=== PATIENT | male | born 1970 | race Two or more races ===

== ENCOUNTER 2020-10-01 16:20 | Inpatient (IN) | payer SELFPAY ==
[~2020-10-01] VITALS: Ht 167.6 cm; Wt 71.7 kg
--- NOTE | 2020-10-01 17:42 | Emergency Room Report ---
History of Present Illness General Chief Complaint: Upper Respiratory Illness Present Illness HPI 50-year-old previously healthy with no medical history male presents to the [facility] department complaining of 3 out of 10 in severity pain in the posterior ribs bilaterally when taking a deep breath or when coughing. Patient reports very slight pain is noted in the sternal area. Patient denies fevers or chills. Does report productive cough yesterday. He denies smoking history or recent travel. No recent immobilization. He denies SOB. Denies recent travel. Denies contact with persons who have tested positive for or are under investigation/quarantine for COVID-19. Pt. was seen at outpatient clinic today and sent to ER for evaluation of low oxygen saturation. He was being evaluated for Viral URI. Allergies: Coded Allergies: No Known Allergies (Unverified , 10/01/20) COVID-19 Screening Contact w/high risk pt: No Experienced COVID-19 symptoms?: Yes COVID-19 Testing performed PAVILION CUTTER: No Patient History Past Medical History: see triage record Past Surgical History: none Pertinent Family History: none Reviewed Nursing Documentation: PMH: Agreed; PSxH: Agreed Review of Systems All Other Systems: negative except mentioned in HPI Physical Exam Vital Signs Date Time Temp Pulse Resp B/P (MAP) Pulse Ox O2 Delivery O2 Flow Rate FiO2 10/01/20 16:54 100.2 118 25 135/92 (106) 92 Room Air Sp02 EP Interpretation: reviewed, normal General Appearance: no apparent distress, alert, GCS 15, non-toxic Head: normocephalic, atraumatic Eyes: bilateral eye normal inspection, bilateral eye PERRL ENT: hearing grossly normal, normal voice Neck: full range of motion Respiratory: chest non-tender, lungs clear, normal breath sounds, no respiratory distress, no accessory muscle use, speaking full sentences, wheezing - bilateral expiratory wheezes Cardiovascular #1: no edema, normal capillary refill, tachycardia Musculoskeletal: back normal, normal range of motion, gait/station normal, non- tender Neurologic: alert, motor strength/tone normal, oriented x3, sensory intact, responsive, speech normal Psychiatric: judgement/insight normal Skin: no rash, normal color Lymphatic: no adenopathy Medical Decision Making PA Attestation Dr. Durand is my supervising Physician whom patient management has been discussed with. Diagnostic Impression: Primary Impression: Hypoxia Additional Impressions: Clinical diagnosis of COVID-19 Acute viral syndrome ER Course 50-year-old previously healthy with no medical history male presents to the emergency department complaining of 3 out of 10 in severity pain in the posterior ribs bilaterally when taking a deep breath or when coughing. Patient reports very slight pain is noted in the sternal area. Patient denies fevers or chills. Does report productive cough yesterday. He denies smoking history or recent travel. No recent immobilization. He denies SOB. Denies recent travel. Denies contact with persons who have tested positive for or are under investigation/quarantine for COVID-19. Pt. was seen at outpatient clinic today and sent to ER for evaluation of low oxygen saturation. He was being evaluated for Viral URI. Ddx considered but are not limited to URI, pneumonia, PE, strep pharyngitis, meningitis, COVID-19 Vital signs: Low O2 saturation of 92-93%, Pt. is tachycardic, Pt. is afebrile. H&PE are most consistent with URI- no meningeal signs, oropharynx is not involved, no evidence of bacterial infection at this time. -- Pt. is nontoxic in appearance and in no acute distress. Does not demonstrate respiratory distress or increased respiratory effort ORDERS: -CXR: Patchy infiltrates laterally c/w COVID-19 - CBC: WNL - CMP -Lactic Acid: WNL -BNP: WNL -Lipase: WNL -CRP: * elevated at 10 -D-Dimer: 1.02 * -Troponin: WNL -EK Sinus tachycardia - Blood Cultures: Pending at time of sign out -PT/PTT: WNL -Rapid COVID-19 : POSITIVE ED INTERVENTIONS: - Rocephin IV -Azithromycin IV - Dexamethasone: 10mg - Lovenox 40mg DISPOSITION: at this time pt. will be admitted for COVID-19 infection and hypoxia Pt. is signed out to attending physician Dr. Durand. EKG Diagnostic Results Troponin ordered: Yes When was troponin ordered?: Oct 01, 2020 EKG Time: 16:44 Rate: tachycardiac - 113 Rhythm: NSR ST Segments: no acute changes ASA given to the pt in ED: No PA Scribe Text This Interpretation was scribed by BINDU Arellano. Chest X-Ray Diagnostic Results Chest X-Ray Diagnostic Results : Chest X-Ray Ordered: Yes # of Views/Limited/Complete: 1 View Indication: Shortness of Breath EP Interpretation: Yes BINDU Xray: Interpretation reviewed, by supervising MD, and agrees with findings. Interpretation: no effusion, no pneumothorax, other - patchy infiltrates to the lateral aspect of the lungs bilaterally. Impression: Other - COVID-19 appearance Electronically Signed by: Sunita Arellano PA-C Last Vital Signs Date Time Temp Pulse Resp B/P (MAP) Pulse Ox O2 Delivery O2 Flow Rate FiO2 10/01/20 16:54 100.2 118 25 135/92 (106) 92 Room Air Status: unchanged Disposition: ADMITTED INPATIENT Condition: Serious Signed Out To: Dr. Durand Scripts No Active Prescriptions or Reported Meds Referrals: [facility] Sunita Arellano Oct 01, 2020 17:42
[2020-10-01] MEDS ORDERED: TYLENOL EXTRA500 MG ORAL (18:12)
[2020-10-01] MEDS ORDERED: ZITHROMAX250 MG ORAL (18:12)
[2020-10-01] MEDS ORDERED: ALBUTEROL SULF8.5 G1 INH (18:12)
[2020-10-01] MEDS ORDERED: PREDNISONE20 MG ORAL (18:12)
--- NOTE | 2020-10-01 18:50 | NUR ---
ED Nurse Note: Pt walked in from clinic c/o chest pain with productive cough since Wednesday. Pt also c/o SOB. Denies n/v/d. Pt is AOx4, calm and cooperative to care, VSS, satting on >94% on RA, afebrile on triage.
[2020-10-01 19:09] VITALS: BP 135/87
--- NOTE | 2020-10-01 19:11 | NUR ---
ED Nurse Note: Dr. Junior at bedside, talked to patient using video repair department supervisor # [phone]. Patient agreed to stay in the hospital.
--- NOTE | 2020-10-01 19:15 | NUR ---
ED Nurse Note: Report received from HERNANDO Morales. Patient is in no acute distress at this time.
[2020-10-01 19:36] LABS: BASOPHILS % (AUTO) 0.9 % (0.0-2.0); EOSINOPHILS % (AUTO) 0.7 % (0.0-3.0); HEMATOCRIT 45.6 % (42.0-52.0); HEMOGLOBIN 15.9 G/DL (14.2-18.0); LYMPHOCYTES % (AUTO) 13.5 % (20.0-45.0); MEAN CORPUSCULAR VOLUME 82 FL (80-99); MONOCYTES % (AUTO) 8.7 % (1.0-10.0); NEUTROPHILS % (AUTO) 76.2 % (45.0-75.0); PLATELET COUNT 178 K/UL (150-450); RED BLOOD COUNT 5.55 M/UL (4.70-6.10); RED CELL DISTRIBUTION WIDTH 12.5 % (11.6-14.8); WHITE BLOOD COUNT 5.1 K/UL (4.8-10.8)
[2020-10-01 19:49] LABS: ANION GAP 9 mmol/L (5-15); BLOOD UREA NITROGEN 15 mg/dL (7-18); CALCIUM 8.4 MG/DL (8.5-10.1); CARBON DIOXIDE 28 MMOL/L (21-32); CHLORIDE 100 MMOL/L (98-107); POTASSIUM 3.6 MMOL/L (3.5-5.1); SODIUM 137 MMOL/L (136-145)
[2020-10-01] MEDS ORDERED: Azithromycin 500 MG in NS 275 ML IV ONE (20:00)
[2020-10-01] MEDS ORDERED: cefTRIAXone 1 GM in NS 55 ML IVPB ONE (20:00)
[2020-10-01 20:04] LABS: ALANINE AMINOTRANSFERASE 91 U/L (12-78); ALBUMIN 3.4 G/DL (3.4-5.0); ALBUMIN/GLOBULIN RATIO 0.8 (1.0-2.7); ALKALINE PHOSPHATASE 79 U/L (46-116); ASPARTATE AMINO TRANSFERASE 72 U/L (15-37); BILIRUBIN,TOTAL 0.9 MG/DL (0.2-1.0); FERRITIN 1055 NG/ML (8-388); LACTATE DEHYDROGENASE 311 U/L (81-234)
[2020-10-01] MEDS ORDERED: dexAMETHasone 10mg/ml Inj IV ONE (20:15)
[2020-10-01] MEDS ORDERED: Enoxaparin 40mg Inj SUBQ ONE (20:15)
[2020-10-01 20:25] VITALS: BP 130/82
--- NOTE | 2020-10-01 20:25 | NUR ---
ED Nurse Note: Patient is resting in room at this time. NAD noted. Breathing is normal and unlabored on 2L oxygen via NC with stable oxygen saturation. He is able to speak in full sentences. Other vital signs stable as well. Patient provided with PO fluids. Will cont. to monitor.
[2020-10-01 22:49] LABS: APPEARANCE,URINE CLEAR; BILIRUBIN, URINE NEGATIVE (NEGATIVE); GLUCOSE, URINE (UA) NEGATIVE (NEGATIVE); KETONES,URINE NEGATIVE (NEGATIVE); LEUKOCYTE ESTERASE ,URINE NEGATIVE (NEGATIVE); NITRITE,URINE NEGATIVE (NEGATIVE); PH,URINE 7 (4.5-8.0); PROTEIN,URINE 1+ (NEGATIVE); UROBILINOGEN,URINE 4 MG/DL (0.0-1.0)
--- NOTE | 2020-10-01 22:50 | NUR ---
ED Nurse Note: Patient is stable for transfer to [facility] unit at this time. He is awake, oriented x 4. Breathing is normal and unlabored on 2L oxygen via NC. He is in no respiratory distress at time of ED departure. He is verbally responsive and ambulatory. Patien taken to unit via wheelchair by tech. Vital signs are stable. IV is intact. He took all belongings with him including farnsworth in wallet that patient wishes to keep on him. Report given to MS nurse.
[2020-10-01 22:54] LABS: COLOR,URINE YELLOW
--- NOTE | 2020-10-01 23:10 | NUR ---
NURSE NOTES: Patient came from ER via wheelchair. A&OX4. IV site patent and intact. Skin intact. All belonging were checked. Patient has farnsworth $407.00. Patient refused send hospital safe. Bed in lowest position. Call light within reach. Will continue to monitor.
[2020-10-01 23:39] VITALS: BP 123/78
[2020-10-02] MEDS ORDERED: Albuterol/Ipratropium 3ml neb HHN PRN (00:30)
[2020-10-02 04:00] VITALS: BP 122/76
[2020-10-02 06:47] LABS: HEMATOCRIT 40.7 % (42.0-52.0); HEMOGLOBIN 15.2 G/DL (14.2-18.0); MEAN CORPUSCULAR VOLUME 79 FL (80-99); PLATELET COUNT 169 K/UL (150-450); RED BLOOD COUNT 5.13 M/UL (4.70-6.10); RED CELL DISTRIBUTION WIDTH 13.6 % (11.6-14.8)
--- NOTE | 2020-10-02 07:26 | NUR ---
NURSE HAND-OFF: Important Events on Shift: Patient Status: Diet: regular Pending Orders: Pending Results/Labs: Pending MD notification: Latest Vital Signs: Temperature 97.9 , Pulse 64 , B/P 122 /76 , Respiratory Rate 18 , O2 SAT 98 , Room Air, O2 Flow Rate 2.0 . Vital Sign Comment: Latest Martniez Fall Score: 20 Fall Risk: Low Risk Safety Measures: Call light Within Reach, Bed Alarm Zone 1, Side Rails Side Rails x2, Bed position Low and Locked. Fall Precautions: Patient Fall Education Report given to Amanda VILLAGOMEZ.
[2020-10-02 07:40] LABS: BLOOD UREA NITROGEN 12 mg/dL (7-18); CALCIUM 8.6 MG/DL (8.5-10.1); CHLORIDE 106 MMOL/L (98-107); CREATININE 0.7 MG/DL (0.55-1.30); PHOSPHORUS 3.6 MG/DL (2.5-4.9); POTASSIUM 3.7 MMOL/L (3.5-5.1); SODIUM 140 MMOL/L (136-145)
[2020-10-02 08:00] VITALS: BP 105/70
[2020-10-02 08:02] LABS: CARBON DIOXIDE 26 MMOL/L (21-32)
--- NOTE | 2020-10-02 08:03 | NUR ---
NURSE NOTES: Patient awake and alert and oriented,respirations are unlabored.02on at 2L N/C.Patient sitting upn bed getting ready to eat breakfast.Call light within reach.
[2020-10-02] MEDS: Heparin 5000 units/ml inj SUBQ SCH ×2 (08:59→20:13)
--- NOTE | 2020-10-02 09:24 | Diagnostic Imaging Report ---
Indication: Chest pain Technique: XRAY Chest 1v Comparison: None Findings: Patchy bilateral infiltrates are noted with a peripheral predilection. There is no pleural effusion or pneumothorax. Heart size within normal limits for AP technique. Mediastinal contours are sharp. No acute osseous anomaly. IMPRESSION: Patchy bilateral infiltrates concerning for multifocal pneumonia, particularly viral pneumonia. Clinical correlation and follow-up recommended.
[2020-10-02 12:00] VITALS: BP 130/84
--- NOTE | 2020-10-02 13:45 | Consultation ---
DATE OF CONSULTATION: 10/02/2020 PULMONARY CONSULTATION HISTORY OF PRESENT ILLNESS: This is a 50-year-old male who came to the hospital with generalized body ache and posterior rib cage pain. He also reports worsening pain when taking deep breath or coughing. The patient denies any fever. He denies any recent travel history. There is no history of tobacco use or any medical illnesses. He denies any contact with people who have tested positive for COVID-19. The patient was seen and evaluated in the emergency room. He was found to have borderline low saturations initially; however, currently is noted to be on room air and saturations 99%. He has been afebrile since arrival. His x-ray chest was reviewed and shows that he has patchy bilateral infiltrates concerning for pneumonic process. The patient also underwent rapid COVID-19 gene testing which was positive for COVID-19 pneumonia. PAST MEDICAL HISTORY: None. PAST SURGICAL HISTORY: None. ALLERGIES: None. REVIEW OF SYSTEMS: Denies any headaches, hematemesis, melena, or hematochezia. PHYSICAL EXAMINATION: GENERAL: Reveals a 50-year-old male. VITAL SIGNS: Blood pressure 130/90, heart rate 84, respirations 18, O2 saturation currently 97% on room air. HEENT: Unremarkable. LUNGS: Clear breath sounds bilaterally. ABDOMEN: Soft. EXTREMITIES: There is no edema. NEUROLOGIC: Nonfocal. LABORATORY DATA: Lab testing shows leukopenia with white count 3.0, otherwise normal CBC and BMP. Ferritin 1055. AST, ALT mildly elevated. LDH 311. CRP 10. Coags show D-dimer 1.0. IMPRESSION: 1. COVID-19 pneumonia. 2. Initially hypoxic, now has normal oxygenation. 3. Elevated inflammatory markers. DISCUSSION: Agree with broad spectrum antibiotics and Decadron. We will hold off on Remdesivir, agree with the Lovenox. We will follow. Camilo Mixon M.D. DR: Dario JOB#: [id number] CC:
--- NOTE | 2020-10-02 14:23 | Infectious Diseases Prog Note ---
Assessment/Plan Assessment/Plan Full consult to follow: A) 1) covid-19 with pna 2) ? CAP 3) allergies - nkda P) 1) dexamethasone, ceftriaxone and azithromycin 2) saturations are good on RA - hold off on remdesivir for now 3) monitor clinically 4) thank you Subjective Allergies: Coded Allergies: No Known Allergies (Unverified , 10/01/20) Objective Last 24 Hour Vital Signs Date Time Temp Pulse Resp B/P (MAP) Pulse Ox O2 Delivery O2 Flow Rate FiO2 10/02/20 12:00 97.0 67 20 130/84 (99) 99 10/02/20 09:00 Room Air 10/02/20 08:00 96.4 72 18 105/70 (82) 99 10/02/20 04:00 97.9 64 18 122/76 (91) 98 10/02/20 01:34 Room Air 10/01/20 23:39 97.8 86 20 123/78 (93) 96 10/01/20 23:10 Room Air 10/01/20 22:50 98.1 87 22 121/79 96 Nasal Cannula 2.0 10/01/20 20:25 98.6 96 22 130/82 97 Nasal Cannula 2.0 10/01/20 19:32 107 24 97 Nasal Cannula 2.0 10/01/20 19:30 111 24 Room Air 10/01/20 19:09 103.1 111 24 135/87 91 Room Air 10/01/20 16:54 100.2 118 25 135/92 (106) 92 Room Air Height (Feet): 5 Height (Inches): 6.00 Weight (Pounds): 158 Microbiology Date/Time Source Procedure Growth Status 10/01/20 19:10 Nasopharynx SARS-CoV-2 RdRp Gene Assay - Final Complete Laboratory Tests Test 10/01/20 19:17 10/01/20 22:30 10/02/20 05:00 White Blood Count 5.1 K/UL (4.8-10.8) 3.0 K/UL (4.8-10.8) L Red Blood Count 5.55 M/UL (4.70-6.10) 5.13 M/UL (4.70-6.10) Hemoglobin 15.9 G/DL (14.2-18.0) 15.2 G/DL (14.2-18.0) Hematocrit 45.6 % (42.0-52.0) 40.7 % (42.0-52.0) L Mean Corpuscular Volume 82 FL (80-99) 79 FL (80-99) L Mean Corpuscular Hemoglobin 28.7 PG (27.0-31.0) 29.6 PG (27.0-31.0) Mean Corpuscular Hemoglobin Concent 35.0 G/DL (32.0-36.0) 37.3 G/DL (32.0-36.0) H Red Cell Distribution Width 12.5 % (11.6-14.8) 13.6 % (11.6-14.8) Platelet Count 178 K/UL (150-450) 169 K/UL (150-450) Mean Platelet Volume 7.0 FL (6.5-10.1) 6.0 FL (6.5-10.1) L Neutrophils (%) (Auto) 76.2 % (45.0-75.0) H % (45.0-75.0) Lymphocytes (%) (Auto) 13.5 % (20.0-45.0) L % (20.0-45.0) Monocytes (%) (Auto) 8.7 % (1.0-10.0) % (1.0-10.0) Eosinophils (%) (Auto) 0.7 % (0.0-3.0) % (0.0-3.0) Basophils (%) (Auto) 0.9 % (0.0-2.0) % (0.0-2.0) Prothrombin Time 11.1 SEC (9.30-11.50) Prothromb Time International Ratio 1.0 (0.9-1.1) Activated Partial Thromboplast Time 30 SEC (23-33) D-Dimer 1.02 mg/L FEU (0.00-0.49) H Sodium Level 137 MMOL/L (136-145) 140 MMOL/L (136-145) Potassium Level 3.6 MMOL/L (3.5-5.1) 3.7 MMOL/L (3.5-5.1) Chloride Level 100 MMOL/L (98-107) 106 MMOL/L (98-107) Carbon Dioxide Level 28 MMOL/L (21-32) 26 MMOL/L (21-32) Anion Gap 9 mmol/L (5-15) Blood Urea Nitrogen 15 mg/dL (7-18) 12 mg/dL (7-18) Creatinine 1.0 MG/DL (0.55-1.30) 0.7 MG/DL (0.55-1.30) Estimat Glomerular Filtration Rate > 60 mL/min (>60) > 60 mL/min (>60) Glucose Level 118 MG/DL (74-106) H 162 MG/DL (74-106) H Lactic Acid Level 1.20 mmol/L (0.4-2.0) Calcium Level 8.4 MG/DL (8.5-10.1) L 8.6 MG/DL (8.5-10.1) Ferritin 1055 NG/ML (8-388) H Total Bilirubin 0.9 MG/DL (0.2-1.0) Aspartate Amino Transf (AST/SGOT) 72 U/L (15-37) H Alanine Aminotransferase (ALT/SGPT) 91 U/L (12-78) H Alkaline Phosphatase 79 U/L (46-116) Lactate Dehydrogenase 311 U/L (81-234) H Troponin I 0.000 ng/mL (0.000-0.056) C-Reactive Protein, Quantitative 10.0 mg/dL (0.00-0.90) H Pro-B-Type Natriuretic Peptide 28 pg/mL (0-125) Total Protein 7.8 G/DL (6.4-8.2) Albumin 3.4 G/DL (3.4-5.0) Globulin 4.4 g/dL Albumin/Globulin Ratio 0.8 (1.0-2.7) L Lipase 198 U/L (73-393) Urine Color Yellow Urine Appearance Clear Urine pH 7 (4.5-8.0) Urine Specific [place] 1.005 (1.005-1.035) Urine Protein 1+ (NEGATIVE) H Urine Glucose (UA) Negative (NEGATIVE) Urine Ketones Negative (NEGATIVE) Urine Blood Negative (NEGATIVE) Urine Nitrite Negative (NEGATIVE) Urine Bilirubin Negative (NEGATIVE) Urine Urobilinogen 4 MG/DL (0.0-1.0) H Urine Leukocyte Esterase Negative (NEGATIVE) Urine RBC 0 /HPF (0 - 0) Urine WBC 0-2 /HPF (0 - 0) Urine Squamous Epithelial Cells None /LPF (NONE/OCC) Urine Amorphous Sediment Moderate /LPF (NONE) H Urine Bacteria Occasional /HPF (NONE) Differential Total Cells Counted 100 Neutrophils % (Manual) 77 % (45-75) H Lymphocytes % (Manual) 16 % (20-45) L Monocytes % (Manual) 7 % (1-10) Eosinophils % (Manual) 0 % (0-3) Basophils % (Manual) 0 % (0-2) Band Neutrophils 0 % (0-8) Platelet Estimate Adequate Platelet Morphology Normal Red Blood Cell Morphology Normal Phosphorus Level 3.6 MG/DL (2.5-4.9) Magnesium Level 2.2 MG/DL (1.8-2.4) Current Medications Medications (Trade) Dose Ordered Sig/Carlos Route PRN Reason Start Time Stop Time Status Last Admin Dose Admin Acetaminophen (Tylenol) 650 mg Q6H PRN ORAL Temp >100.5 10/02/20 00:30 11/01/20 00:29 Albuterol/ Ipratropium (Albuterol/ Ipratropium) 3 ml Q4H PRN HHN Shortness of Breath 10/02/20 00:30 10/07/20 00:29 Dexamethasone Sodium Phosphate (Decadron 4mg/ml vial) 6 mg DAILY IVP 10/02/20 09:00 10/11/20 08:59 10/02/20 08:57 Heparin Sodium (Porcine) (Heparin 5000 units/ml) 5,000 units EVERY 12 HOURS SUBQ 10/02/20 09:00 11/16/20 08:59 10/02/20 08:59 Bita Gutierrez MD Oct 02, 2020 14:23
--- NOTE | 2020-10-02 15:20 | NUR ---
CASE MANAGEMENT:INITIAL REVIEW 50 YR OLD MALE WALKED IN TO ED FROM HOME CC;UPPER RESPIRATORY ILLNESS SI;COVID POSITIVE. HYPOXIA. ACUTE VIRAL SYNDROME. 103.1 111 25 135/92 97% 2L NC FERRITIN 1055 AST 72 ALT 91 CRP 10.0 D-DIMER 1.02 UA+ PROTEIN, UROBILINOGEN, AMORPHOUS SEDIMENT COVID RAPID ~ POSITIVE CXR ~ Patchy bilateral infiltrates concerning for multifocal pneumonia, particularly viral pneumonia. Clinical correlation and follow-up recommended. IS;IVF NS BOLUS ZITHROMAX IV ROCEPHIN IV DECADRON IV LOVENOX SQ ADMITTED TO MED SURG MED SURG STATUS DCP;FROM HOME Addendum: 10/02/20 at 1534 by SAKINA ORR LVN CM INTERQUAL CRITERIA MET
[2020-10-02 16:00] VITALS: BP 130/84
--- NOTE | 2020-10-02 16:29 | History and Physical ---
History of Present Illness General Date patient seen: Oct 02, 2020 Time patient seen: 12:35 Reason for Hospitalization: Upper Respiratory Illness Present Illness HPI 50M with no significant PMHx presented to the hospital with body aches. Patient said that he was recently evaluated at an urgent care for body aches and pain in his chest with very deep inhalation. He denies any fever, travel history, or members of his immediate home that were positive for Covid. He said he check his O2 sat at home and it was found to be in the low 90s and he became concerned with his breathing and went to the ED. Currently he is afebrile and breathing comfortably on RA. CXR significant for b/l infiltrates. Found to be Covid+. No anosmia or dysguesia. . Allergies: Coded Allergies: No Known Allergies (Unverified , 10/01/20) COVID-19 Screening Contact w/high risk pt: No Experienced COVID-19 symptoms?: Yes Coronavirus symptoms experienc: Fatigue, Cough Medication History No Active Prescriptions or Reported Meds Patient History History Provided By: Patient Healthcare decision maker Resuscitation status Advanced Directive on File Review of Systems Constitutional: Denies: no symptoms, see HPI, chills, sweats, fever, malaise, weakness, other Eye: Denies: no symptoms, see HPI, eye pain, blurred vision, tearing, double vision, nose pain, nose congestion, acuity changes, discharge, other ENT: Denies: no symptoms, see HPI, ear pain, ear discharge, nose pain, nose congestion, throat pain, throat swelling, mouth pain, hearing loss, nasal discharge, other Respiratory: Reports: see HPI Cardiovascular: Denies: no symptoms, see HPI, chest pain, edema, palpitations, syncope, PND, other Gastrointestinal: Denies: no symptoms, see HPI, abdominal pain, constipation, diarrhea, nausea, vomiting, melena, hematemesis, other Genitourinary: Denies: no symptoms, see HPI, discharge, dysuria, frequency, hematuria, pain, retention, incontinence, urgency, vag bleed/dc, other Musculoskeletal: Denies: no symptoms, see HPI, back pain, gout, joint pain, joint swelling, muscle pain, muscle stiffness, other Skin: Denies: no symptoms, see HPI, rash, change in color, change in hair/nails, dryness, lesions, other Psychiatric: Denies: no symptoms, see HPI, prior hx, anxiety, depressed feelings, emotional problems, SI, HI, hallucinations, other Neurological: Denies: no symptoms, see HPI, headache, numbness, paresthesia, seizure, tingling, tremors, focal weakness, syncope, dizziness, other Endocrine: Denies: no symptoms, see HPI, excessive sweating, flushing, intolerance to temperature, increased thirst, increased urine, unexplained weight loss, other Hematologic/Lymphatic: Denies: no symptoms, see HPI, anemia, blood clots, easy bleeding, easy bruising, swollen glands, diathesis, other Physical Exam General Appearance: alert HEENT: normocephalic, atraumatic Neck: supple Respiratory/Chest: lungs clear, decreased breath sounds Cardiovascular/Chest: normal rate, regular rhythm Abdomen: non tender, soft Extremities: normal range of motion, non-tender Skin Exam: warm/dry 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 normal, oriented x 3 Last 24 Hour Vital Signs Date Time Temp Pulse Resp B/P (MAP) Pulse Ox O2 Delivery O2 Flow Rate FiO2 10/02/20 12:00 97.0 67 20 130/84 (99) 99 10/02/20 09:00 Room Air 10/02/20 08:00 96.4 72 18 105/70 (82) 99 10/02/20 04:00 97.9 64 18 122/76 (91) 98 10/02/20 01:34 Room Air 10/01/20 23:39 97.8 86 20 123/78 (93) 96 10/01/20 23:10 Room Air 10/01/20 22:50 98.1 87 22 121/79 96 Nasal Cannula 2.0 10/01/20 20:25 98.6 96 22 130/82 97 Nasal Cannula 2.0 10/01/20 19:32 107 24 97 Nasal Cannula 2.0 10/01/20 19:30 111 24 Room Air 10/01/20 19:09 103.1 111 24 135/87 91 Room Air 10/01/20 16:54 100.2 118 25 135/92 (106) 92 Room Air Intake and Output 10/01/20 10/02/20 19:00 07:00 # Voids 2 Laboratory Tests Test 10/01/20 19:17 10/01/20 22:30 10/02/20 05:00 White Blood Count 5.1 K/UL (4.8-10.8) 3.0 K/UL (4.8-10.8) L Red Blood Count 5.55 M/UL (4.70-6.10) 5.13 M/UL (4.70-6.10) Hemoglobin 15.9 G/DL (14.2-18.0) 15.2 G/DL (14.2-18.0) Hematocrit 45.6 % (42.0-52.0) 40.7 % (42.0-52.0) L Mean Corpuscular Volume 82 FL (80-99) 79 FL (80-99) L Mean Corpuscular Hemoglobin 28.7 PG (27.0-31.0) 29.6 PG (27.0-31.0) Mean Corpuscular Hemoglobin Concent 35.0 G/DL (32.0-36.0) 37.3 G/DL (32.0-36.0) H Red Cell Distribution Width 12.5 % (11.6-14.8) 13.6 % (11.6-14.8) Platelet Count 178 K/UL (150-450) 169 K/UL (150-450) Mean Platelet Volume 7.0 FL (6.5-10.1) 6.0 FL (6.5-10.1) L Neutrophils (%) (Auto) 76.2 % (45.0-75.0) H % (45.0-75.0) Lymphocytes (%) (Auto) 13.5 % (20.0-45.0) L % (20.0-45.0) Monocytes (%) (Auto) 8.7 % (1.0-10.0) % (1.0-10.0) Eosinophils (%) (Auto) 0.7 % (0.0-3.0) % (0.0-3.0) Basophils (%) (Auto) 0.9 % (0.0-2.0) % (0.0-2.0) Prothrombin Time 11.1 SEC (9.30-11.50) Prothromb Time International Ratio 1.0 (0.9-1.1) Activated Partial Thromboplast Time 30 SEC (23-33) D-Dimer 1.02 mg/L FEU (0.00-0.49) H Sodium Level 137 MMOL/L (136-145) 140 MMOL/L (136-145) Potassium Level 3.6 MMOL/L (3.5-5.1) 3.7 MMOL/L (3.5-5.1) Chloride Level 100 MMOL/L (98-107) 106 MMOL/L (98-107) Carbon Dioxide Level 28 MMOL/L (21-32) 26 MMOL/L (21-32) Anion Gap 9 mmol/L (5-15) Blood Urea Nitrogen 15 mg/dL (7-18) 12 mg/dL (7-18) Creatinine 1.0 MG/DL (0.55-1.30) 0.7 MG/DL (0.55-1.30) Estimat Glomerular Filtration Rate > 60 mL/min (>60) > 60 mL/min (>60) Glucose Level 118 MG/DL (74-106) H 162 MG/DL (74-106) H Lactic Acid Level 1.20 mmol/L (0.4-2.0) Calcium Level 8.4 MG/DL (8.5-10.1) L 8.6 MG/DL (8.5-10.1) Ferritin 1055 NG/ML (8-388) H Total Bilirubin 0.9 MG/DL (0.2-1.0) Aspartate Amino Transf (AST/SGOT) 72 U/L (15-37) H Alanine Aminotransferase (ALT/SGPT) 91 U/L (12-78) H Alkaline Phosphatase 79 U/L (46-116) Lactate Dehydrogenase 311 U/L (81-234) H Troponin I 0.000 ng/mL (0.000-0.056) C-Reactive Protein, Quantitative 10.0 mg/dL (0.00-0.90) H Pro-B-Type Natriuretic Peptide 28 pg/mL (0-125) Total Protein 7.8 G/DL (6.4-8.2) Albumin 3.4 G/DL (3.4-5.0) Globulin 4.4 g/dL Albumin/Globulin Ratio 0.8 (1.0-2.7) L Lipase 198 U/L (73-393) Urine Color Yellow Urine Appearance Clear Urine pH 7 (4.5-8.0) Urine Specific [place] 1.005 (1.005-1.035) Urine Protein 1+ (NEGATIVE) H Urine Glucose (UA) Negative (NEGATIVE) Urine Ketones Negative (NEGATIVE) Urine Blood Negative (NEGATIVE) Urine Nitrite Negative (NEGATIVE) Urine Bilirubin Negative (NEGATIVE) Urine Urobilinogen 4 MG/DL (0.0-1.0) H Urine Leukocyte Esterase Negative (NEGATIVE) Urine RBC 0 /HPF (0 - 0) Urine WBC 0-2 /HPF (0 - 0) Urine Squamous Epithelial Cells None /LPF (NONE/OCC) Urine Amorphous Sediment Moderate /LPF (NONE) H Urine Bacteria Occasional /HPF (NONE) Differential Total Cells Counted 100 Neutrophils % (Manual) 77 % (45-75) H Lymphocytes % (Manual) 16 % (20-45) L Monocytes % (Manual) 7 % (1-10) Eosinophils % (Manual) 0 % (0-3) Basophils % (Manual) 0 % (0-2) Band Neutrophils 0 % (0-8) Platelet Estimate Adequate Platelet Morphology Normal Red Blood Cell Morphology Normal Phosphorus Level 3.6 MG/DL (2.5-4.9) Magnesium Level 2.2 MG/DL (1.8-2.4) Microbiology Date/Time Source Procedure Growth Status 10/01/20 19:10 Nasopharynx SARS-CoV-2 RdRp Gene Assay - Final Complete Height (Feet): 5 Height (Inches): 6.00 Weight (Pounds): 158 Medications Current Medications Medications (Trade) Dose Ordered Sig/Carlos Route PRN Reason Start Time Stop Time Status Last Admin Dose Admin Acetaminophen (Tylenol) 650 mg Q6H PRN ORAL Temp >100.5 10/02/20 00:30 11/01/20 00:29 Albuterol/ Ipratropium (Albuterol/ Ipratropium) 3 ml Q4H PRN HHN Shortness of Breath 10/02/20 00:30 10/07/20 00:29 Azithromycin (Zithromax) 500 mg DAILY ORAL 10/03/20 09:00 10/10/20 08:59 Ceftriaxone Sodium 1 gm/ Dextrose 50 ml @ 100 mls/hr Q24H IVPB 10/02/20 18:00 10/09/20 17:59 Dexamethasone Sodium Phosphate (Decadron 4mg/ml vial) 6 mg DAILY IVP 10/02/20 09:00 10/11/20 08:59 10/02/20 08:57 Heparin Sodium (Porcine) (Heparin 5000 units/ml) 5,000 units EVERY 12 HOURS SUBQ 10/02/20 09:00 11/16/20 08:59 10/02/20 08:59 Assessment/Plan Status: stable Assessment/Plan: #Acute hypoxemic Respiratory Failure #Covid 19 Positive #Concern for CAP Patient admitted with myalgias and pain in his chest with deep breahts. Patient lives with family, instructed patient to discuss self quaranting and testing with family - CXR with b/l patchy infiltrates - Currently stable on RA - Tylenol prn for fever - Contact and isolation precautions - LDH, CRP, and Ferritin elevated - Abx - Azitrhomycin and Ceftriaxone (10/02 - - Decadron (10/02 - ) - Albuterol prn - Pulmonology consult, appreciate recs - ID consult, appreciate recs Reg Diet Heparin sq Time spent is 75 minutes with approximately 31 minutes with counseling and care coordination. D/w consultants. Time of note does not reflect time of encounter Saritha Carlson M.D. Oct 02, 2020 16:29
[2020-10-02] MEDS: cefTRIAXone 1 GM in D5W 50 ML IVPB SCH (18:20)
--- NOTE | 2020-10-02 18:20 | NUR ---
NURSE NOTES: Patient using cellphone able to hold conversation,no shortness of breath noted at this time.Call light within reach.
--- NOTE | 2020-10-02 19:30 | NUR ---
NURSE HAND-OFF: Catherine VILLAGOMEZ Important Events on Shift:[patient started on antibiotics as ordered/] Patient Status: [stable] Diet: [Regular] Pending Orders: [AM labs 10/03/20 Pending Results/Labs:[] Pending MD notification:[] Latest Vital Signs: Temperature 96.6 , Pulse 85 , B/P 130 /84 , Respiratory Rate 18 , O2 SAT 99 , Room Air, O2 Flow Rate 2.0 . Vital Sign Comment: [] Latest Martinez Fall Score: 20 Fall Risk: Low Risk Safety Measures: Call light Within Reach, Bed Alarm Zone 1, Side Rails Side Rails x2, Bed position Low and Locked. Fall Precautions: Patient Fall Education Report given to [].
[2020-10-02 20:00] VITALS: BP 127/81
--- NOTE | 2020-10-02 20:00 | NUR ---
NURSE NOTES: Patient received in bed, awake, alert. Denies pain or discomfort at this time. Will continue to plan of care.
[2020-10-03] VITALS: BP 116/73
[2020-10-03 04:00] VITALS: BP 117/75
[2020-10-03 05:42] LABS: BASOPHILS % (AUTO) 0.7 % (0.0-2.0); EOSINOPHILS % (AUTO) 0.3 % (0.0-3.0); HEMOGLOBIN 14.6 G/DL (14.2-18.0); LYMPHOCYTES % (AUTO) 8.9 % (20.0-45.0); MEAN CORPUSCULAR VOLUME 80 FL (80-99); MONOCYTES % (AUTO) 8.2 % (1.0-10.0); NEUTROPHILS % (AUTO) 81.9 % (45.0-75.0); PLATELET COUNT 193 K/UL (150-450); RED BLOOD COUNT 4.77 M/UL (4.70-6.10); RED CELL DISTRIBUTION WIDTH 12.8 % (11.6-14.8); WHITE BLOOD COUNT 6.8 K/UL (4.8-10.8)
[2020-10-03 07:05] LABS: ALANINE AMINOTRANSFERASE 71 U/L (12-78); ALBUMIN 2.8 G/DL (3.4-5.0); ALBUMIN/GLOBULIN RATIO 0.7 (1.0-2.7); ALKALINE PHOSPHATASE 68 U/L (46-116); ANION GAP 8 mmol/L (5-15); ASPARTATE AMINO TRANSFERASE 30 U/L (15-37); BILIRUBIN,TOTAL 0.5 MG/DL (0.2-1.0); BLOOD UREA NITROGEN 20 mg/dL (7-18); CALCIUM 8.5 MG/DL (8.5-10.1); CARBON DIOXIDE 24 MMOL/L (21-32); CHLORIDE 109 MMOL/L (98-107); CREATININE 0.7 MG/DL (0.55-1.30); POTASSIUM 3.9 MMOL/L (3.5-5.1); SODIUM 141 MMOL/L (136-145)
--- NOTE | 2020-10-03 07:38 | NUR ---
NURSE NOTES: Report received from Catherine VILLAGOMEZ, rounds made. Patient resting in semi-fowlers position, in bed. AOx4, calm. Wolof/Persian speaking. No SOB on O2 2LNC , respirations even/unlabored. LAC saline lock, flushed, patent, intact. Call light in reach, bed in lowest position, will continue to monitor.
--- NOTE | 2020-10-03 07:46 | NUR ---
NURSE HAND-OFF: Important Events on Shift:[uneventful, stable] Patient Status: [stable] Diet: [Regular] Pending Orders: [] Pending Results/Labs:[] Pending MD notification:[] Latest Vital Signs: Temperature 97.3 , Pulse 61 , B/P 117 /75 , Respiratory Rate 18 , O2 SAT 98 , Nasal Cannula, O2 Flow Rate 2.0 . Vital Sign Comment: [] Latest Martinez Fall Score: 20 Fall Risk: Low Risk Safety Measures: Call light Within Reach, Bed Alarm Zone 1, Side Rails Side Rails x2, Bed position Low and Locked. Fall Precautions: Patient Fall Education Report given to [Nadya VILLAGOMEZ].
[2020-10-03 08:00] VITALS: BP 128/71
[2020-10-03] MEDS: Heparin 5000 units/ml inj SUBQ SCH ×2 (09:37→20:44)
[2020-10-03] MEDS: Azithromycin 250mg tab ORAL SCH (09:37)
[2020-10-03 12:00] VITALS: BP 131/71
--- NOTE | 2020-10-03 12:58 | NUR ---
CASE MANAGEMENT:REVIEW SI;COVID PNEUMONIA 97.7 58 20 128/71 97% 2L NC BUN 20 BG 142 ALB 2.8 IS;ZITHROMAX PO QD ROCEPHIN IV Q24 DECADRON IV QD HEPARIN SQ Q12 MED SURG STATUS DCP;PATIENT IS FROM HOME
--- NOTE | 2020-10-03 14:11 | Pulmonology Progress Note ---
Subjective ROS Limited/Unobtainable: No Constitutional: Denies: fever, anorexia, drenching sweats HEENT: Repors: no symptoms Respiratory: Reports: dry cough; Denies: shortness of breath, wheezing Cardiovascular: Denies: chest pain, palpitations Gastrointestinal/Abdominal: Denies: nausea, vomiting, diarrhea Allergies: Coded Allergies: No Known Allergies (Unverified , 10/01/20) Subjective pt complains of intermittent cough Objective Last 24 Hour Vital Signs Date Time Temp Pulse Resp B/P (MAP) Pulse Ox O2 Delivery O2 Flow Rate FiO2 10/03/20 12:00 98.1 73 20 131/71 (91) 99 10/03/20 08:00 97.1 60 20 128/71 (90) 99 10/03/20 04:00 97.3 61 18 117/75 (89) 98 10/03/20 00:00 97.2 58 20 116/73 (87) 98 10/02/20 21:00 Nasal Cannula 2.0 10/02/20 20:00 97.7 64 20 127/81 (96) 97 10/02/20 16:00 96.6 85 18 130/84 (99) 99 Intake and Output0 10/02/20 10/03/20 19:00 07:00 Intake Total 640 ml 300 ml Output Total 200 ml 550 ml Balance 440 ml -250 ml Intake Oral 640 ml 300 ml Output Urine Total 200 ml 550 ml # Voids 2 Objective 10/03/2020 saturating 99% on 2 lpm NC; reports feeling better General Appearance: WD/WN, no acute distress HEENT: normocephalic, atraumatic Respiratory: chest wall non-tender, lungs clear Cardiovascular: normal rate, regular rhythm, no gallop/murmur Abdomen: normal bowel sounds, soft, non tender Extremities: no edema Microbiology Date/Time Source Procedure Growth Status 10/01/20 19:23 Blood Blood Culture - Preliminary NO GROWTH AFTER 24 HOURS Resulted 10/01/20 19:17 Blood Blood Culture - Preliminary NO GROWTH AFTER 24 HOURS Resulted 10/01/20 19:10 Nasopharynx SARS-CoV-2 RdRp Gene Assay - Final Complete Laboratory Tests 10/03/20 04:00: White Blood Count 6.8#, Red Blood Count 4.77, Hemoglobin 14.6, Hematocrit 38.0L, Mean Corpuscular Volume 80, Mean Corpuscular Hemoglobin 30.5, Mean Corpuscular Hemoglobin Concent 38.4H, Red Cell Distribution Width 12.8, Platelet Count 193, Mean Platelet Volume 6.8, Neutrophils (%) (Auto) 81.9H, Lymphocytes (%) (Auto) 8.9L, Monocytes (%) (Auto) 8.2, Eosinophils (%) (Auto) 0.3, Basophils (%) (Auto) 0.7, Sodium Level 141, Potassium Level 3.9, Chloride Level 109H, Carbon Dioxide Level 24, Anion Gap 8, Blood Urea Nitrogen 20H, Creatinine 0.7, Estimat Glomerular Filtration Rate > 60, Glucose Level 142H, Calcium Level 8.5, Total Bilirubin 0.5, Aspartate Amino Transf (AST/SGOT) 30, Alanine Aminotransferase (ALT/SGPT) 71, Alkaline Phosphatase 68, Total Protein 6.8, Albumin 2.8L, Globulin 4.0, Albumin/Globulin Ratio 0.7L Current Medications Medications (Trade) Dose Ordered Sig/Carlos Route PRN Reason Start Time Stop Time Status Last Admin Dose Admin Acetaminophen (Tylenol) 650 mg Q6H PRN ORAL Temp >100.5 10/02/20 00:30 11/01/20 00:29 Albuterol/ Ipratropium (Combivent Respimat) 1 puff Q4H PRN INH Shortness of Breath 10/03/20 14:00 11/02/20 13:59 Azithromycin (Zithromax) 500 mg DAILY ORAL 10/03/20 09:00 10/10/20 08:59 10/03/20 09:37 Ceftriaxone Sodium 1 gm/ Dextrose 50 ml @ 100 mls/hr Q24H IVPB 10/02/20 18:00 10/09/20 17:59 10/02/20 18:20 Dexamethasone Sodium Phosphate (Decadron 4mg/ml vial) 6 mg DAILY IVP 10/02/20 09:00 10/11/20 08:59 10/03/20 09:38 Heparin Sodium (Porcine) (Heparin 5000 units/ml) 5,000 units EVERY 12 HOURS SUBQ 10/02/20 09:00 11/16/20 08:59 10/03/20 09:37 Assessment/Plan Assessment/Plan Assessment: 1. COVID-19 pneumonia. - CXR shows patchy b/l infiltrates concerning for multifocal pneumonia - on broad spectrum Abx and decadron - hold off on remdesivir 2. Initially hypoxic, now has normal oxygenation on 2 lpm NC 3. Elevated inflammatory markers. 4. DVT ppx - lovenox 5. Elevated BUN - BUN 20 - monitor We will follow carefully The care of this patient was discussed with my supervising physician Time spent for this encounter was approximately 31 minutes The patient was seen and examined at bedside and all new and available data was reviewed in the patients chart. I agree with the above findings, impression, and plan. (Patient was seen earlier today. Signature timestamp does not reflect patient encounter time) Fabián Cortez MD Oct 03, 2020 14:11 Camilo Mixon MD Oct 03, 2020 18:00
--- NOTE | 2020-10-03 14:39 | General Progress Note ---
Subjective Date patient seen: Oct 03, 2020 Constitutional: Denies: no symptoms, chills, diaphoresis, fever, malaise, weakness, other HEENT: Denies: no symptoms, eye pain, blurred vision, tearing, double vision, ear pain, ear discharge, nose pain, nose congestion, throat pain, throat swelling, mouth pain, mouth swelling, other Cardiovascular: Denies: no symptoms, chest pain, edema, irregular heart rate, lightheadedness, palpitations, syncope, other Respiratory: Denies: no symptoms, cough, orthopnea, shortness of breath, SOB with excertion, SOB at rest, sputum, stridor, wheezing, other Gastrointestinal/Abdominal: Denies: no symptoms, abdomen distended, abdominal pain, black stools, tarry stools, blood in stool, constipated, diarrhea, difficulty swallowing, nausea, poor appetite, poor fluid intake, rectal bleeding, vomiting, other Genitourinary: Denies: no symptoms, burning, discharge, frequency, flank pain, hematuria, incontinence, pain, urgency, other Neurologic/Psychiatric: Denies: no symptoms, anxiety, depressed, emotional problems, headache, numbness, paresthesia, pre-existing deficit, seizure, tingling, tremors, weakness, other Endocrine: Denies: no symptoms, excessive sweating, flushing, intolerance to cold, intolerance to heat, increased hunger, increased thirst, increased urine, unexplained weight gain, unexplained weight loss, other Hematologic/Lymphatic: Denies: no symptoms, anemia, easy bleeding, easy bruising, other Allergies: Coded Allergies: No Known Allergies (Unverified , 10/01/20) Subjective No acute events overnight Oxygen sat 99% on 2L NC No symptoms of shortness of breath Subjectively doing well Objective Last 24 Hour Vital Signs Date Time Temp Pulse Resp B/P (MAP) Pulse Ox O2 Delivery O2 Flow Rate FiO2 10/03/20 12:00 98.1 73 20 131/71 (91) 99 10/03/20 08:00 97.1 60 20 128/71 (90) 99 10/03/20 04:00 97.3 61 18 117/75 (89) 98 10/03/20 00:00 97.2 58 20 116/73 (87) 98 10/02/20 21:00 Nasal Cannula 2.0 10/02/20 20:00 97.7 64 20 127/81 (96) 97 10/02/20 16:00 96.6 85 18 130/84 (99) 99 Intake and Output 10/02/20 10/03/20 18:59 06:59 Intake Total 640 ml 300 ml Output Total 200 ml 550 ml Balance 440 ml -250 ml Intake Oral 640 ml 300 ml Output Urine Total 200 ml 550 ml # Voids 2 Laboratory Tests 10/03/20 04:00: White Blood Count 6.8#, Red Blood Count 4.77, Hemoglobin 14.6, Hematocrit 38.0L, Mean Corpuscular Volume 80, Mean Corpuscular Hemoglobin 30.5, Mean Corpuscular Hemoglobin Concent 38.4H, Red Cell Distribution Width 12.8, Platelet Count 193, Mean Platelet Volume 6.8, Neutrophils (%) (Auto) 81.9H, Lymphocytes (%) (Auto) 8.9L, Monocytes (%) (Auto) 8.2, Eosinophils (%) (Auto) 0.3, Basophils (%) (Auto) 0.7, Sodium Level 141, Potassium Level 3.9, Chloride Level 109H, Carbon Dioxide Level 24, Anion Gap 8, Blood Urea Nitrogen 20H, Creatinine 0.7, Estimat Glomerular Filtration Rate > 60, Glucose Level 142H, Calcium Level 8.5, Total Bilirubin 0.5, Aspartate Amino Transf (AST/SGOT) 30, Alanine Aminotransferase (ALT/SGPT) 71, Alkaline Phosphatase 68, Total Protein 6.8, Albumin 2.8L, Globulin 4.0, Albumin/Globulin Ratio 0.7L Height (Feet): 5 Height (Inches): 6.00 Weight (Pounds): 158 General Appearance: no apparent distress, alert EENT: PERRL/EOMI Neck: supple Cardiovascular: normal rate, regular rhythm Respiratory/Chest: lungs clear, normal breath sounds Abdomen: non tender, soft Extremities: normal range of motion 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 Patient lives with family, instructed patient to discuss self quarantine and testing with family - CXR with b/l patchy infiltrates - Currently stable on RA - Tylenol prn for fever - Contact and isolation precautions - LDH, CRP, and Ferritin elevated - Abx - Azitrhomycin and Ceftriaxone (10/02 - - Decadron (10/02 - ) - Albuterol prn - Pulmonology consult, appreciate recs - ID consult, appreciate recs Reg Diet Heparin sq Time spent is 35 minutes with approximately 17 minutes with counseling and care coordination. D/w consultants. Time of note does not reflect time of encounter Saritha Carlson M.D. Oct 03, 2020 14:39
--- NOTE | 2020-10-03 15:00 | NUR ---
NURSE NOTES: O2 weaning, reduced to 1.5 L NC, sats 98%, no cough, SOB at this time. Will continue to monitor.
[2020-10-03 16:00] VITALS: BP 121/71
--- NOTE | 2020-10-03 16:29 | Diagnostic Imaging Report ---
Indication: Reason For Exam: Shortness of breath Technique: Single AP view of the chest. Comparison: Chest radiograph Dated 10/01/2020 Findings: The cardiomediastinal silhouette is unchanged in appearance. Redemonstration of diffuse interstitial opacities and patchy predominantly peripheral bilateral airspace opacities. Apparent worsening aeration of the lungs. No pneumothorax. No increase in pleural effusion. IMPRESSION: Apparent worsening in aeration of the lungs is likely secondary to decreased inspiratory effort. Otherwise, no significant change compared to most recent examination.
[2020-10-03] MEDS: cefTRIAXone 1 GM in D5W 50 ML IVPB SCH (18:11)
--- NOTE | 2020-10-03 19:20 | NUR ---
NURSE NOTES: Received report from HERNANDO [place]. Pt is laying down in bed watching TV. VSS. Bed locked in lowest position, side rails up x2, call light within reach. O2 via NC at 1.5L, no difficulty breathing, O2 sat 97%. Will continue to monitor.
--- NOTE | 2020-10-03 19:32 | NUR ---
NURSE HAND-OFF: Important Events on Shift:Wean O2 down, keep sats >90%, decreased to 1.5L on NC sats 98% Patient Status: stable Diet: Regular Pending Orders: none Pending Results/Labs:none Pending MD notification:none Latest Vital Signs: Temperature 97.1 , Pulse 72 , B/P 121 /71 , Respiratory Rate 20 , O2 SAT 98 , Nasal Cannula, O2 Flow Rate 2.0 . Vital Sign Comment: none Latest Martinez Fall Score: 20 Fall Risk: Low Risk Safety Measures: Call light Within Reach, Bed Alarm Zone 1, Side Rails Side Rails x2, Bed position Low and Locked. Fall Precautions: Patient Fall Education Report given to Catherine VILLAGOMEZ.
[2020-10-03 20:00] VITALS: BP 124/81
--- NOTE | 2020-10-03 23:42 | Infectious Diseases Prog Note ---
Assessment/Plan Assessment/Plan A) 1) covid-19 with pna 2) ? CAP 3) allergies - nkda P) 1) dexamethasone, ceftriaxone and azithromycin 2) saturations are good - hold off on remdesivir for now 3) monitor clinically Subjective Constitutional: Denies: fever HEENT: Reports: congestion - less Respiratory: Reports: shortness of breath - less Gastrointestinal/Abdominal: Denies: nausea, vomiting, diarrhea Allergies: Coded Allergies: No Known Allergies (Unverified , 10/01/20) Objective Last 24 Hour Vital Signs Date Time Temp Pulse Resp B/P (MAP) Pulse Ox O2 Delivery O2 Flow Rate FiO2 10/03/20 21:00 Nasal Cannula 1.5 10/03/20 20:00 96.2 64 18 124/81 (95) 97 10/03/20 16:00 97.1 72 20 121/71 (88) 98 10/03/20 12:00 98.1 73 20 131/71 (91) 99 10/03/20 09:00 Nasal Cannula 2.0 10/03/20 08:00 97.1 60 20 128/71 (90) 99 10/03/20 04:00 97.3 61 18 117/75 (89) 98 10/03/20 00:00 97.2 58 20 116/73 (87) 98 Height (Feet): 5 Height (Inches): 6.00 Weight (Pounds): 158 General Appearance: no acute distress HEENT: normocephalic, atraumatic, anicteric Respiratory/Chest: crackles/rales, rhonchi - bilaterally Cardiovascular: normal rate, regular rhythm Abdomen: normal bowel sounds, soft, non tender, no organomegaly Microbiology Date/Time Source Procedure Growth Status 10/01/20 19:23 Blood Blood Culture - Preliminary NO GROWTH AFTER 24 HOURS Resulted 10/01/20 19:17 Blood Blood Culture - Preliminary NO GROWTH AFTER 24 HOURS Resulted 10/01/20 19:10 Nasopharynx SARS-CoV-2 RdRp Gene Assay - Final Complete Laboratory Tests Test 10/03/20 04:00 White Blood Count 6.8 K/UL (4.8-10.8) # Red Blood Count 4.77 M/UL (4.70-6.10) Hemoglobin 14.6 G/DL (14.2-18.0) Hematocrit 38.0 % (42.0-52.0) L Mean Corpuscular Volume 80 FL (80-99) Mean Corpuscular Hemoglobin 30.5 PG (27.0-31.0) Mean Corpuscular Hemoglobin Concent 38.4 G/DL (32.0-36.0) H Red Cell Distribution Width 12.8 % (11.6-14.8) Platelet Count 193 K/UL (150-450) Mean Platelet Volume 6.8 FL (6.5-10.1) Neutrophils (%) (Auto) 81.9 % (45.0-75.0) H Lymphocytes (%) (Auto) 8.9 % (20.0-45.0) L Monocytes (%) (Auto) 8.2 % (1.0-10.0) Eosinophils (%) (Auto) 0.3 % (0.0-3.0) Basophils (%) (Auto) 0.7 % (0.0-2.0) Sodium Level 141 MMOL/L (136-145) Potassium Level 3.9 MMOL/L (3.5-5.1) Chloride Level 109 MMOL/L (98-107) H Carbon Dioxide Level 24 MMOL/L (21-32) Anion Gap 8 mmol/L (5-15) Blood Urea Nitrogen 20 mg/dL (7-18) H Creatinine 0.7 MG/DL (0.55-1.30) Estimat Glomerular Filtration Rate > 60 mL/min (>60) Glucose Level 142 MG/DL (74-106) H Calcium Level 8.5 MG/DL (8.5-10.1) Total Bilirubin 0.5 MG/DL (0.2-1.0) Aspartate Amino Transf (AST/SGOT) 30 U/L (15-37) Alanine Aminotransferase (ALT/SGPT) 71 U/L (12-78) Alkaline Phosphatase 68 U/L (46-116) Total Protein 6.8 G/DL (6.4-8.2) Albumin 2.8 G/DL (3.4-5.0) L Globulin 4.0 g/dL Albumin/Globulin Ratio 0.7 (1.0-2.7) L Current Medications Medications (Trade) Dose Ordered Sig/Carlos Route PRN Reason Start Time Stop Time Status Last Admin Dose Admin Acetaminophen (Tylenol) 650 mg Q6H PRN ORAL Temp >100.5 10/02/20 00:30 11/01/20 00:29 Albuterol/ Ipratropium (Combivent Respimat) 1 puff Q4H PRN INH Shortness of Breath 10/03/20 14:00 11/02/20 13:59 Azithromycin (Zithromax) 500 mg DAILY ORAL 10/03/20 09:00 10/10/20 08:59 10/03/20 09:37 Ceftriaxone Sodium 1 gm/ Dextrose 50 ml @ 100 mls/hr Q24H IVPB 10/02/20 18:00 10/09/20 17:59 10/03/20 18:11 Dexamethasone Sodium Phosphate (Decadron 4mg/ml vial) 6 mg DAILY IVP 10/02/20 09:00 10/11/20 08:59 10/03/20 09:38 Heparin Sodium (Porcine) (Heparin 5000 units/ml) 5,000 units EVERY 12 HOURS SUBQ 10/02/20 09:00 11/16/20 08:59 10/03/20 20:44 Bita Gutierrez MD Oct 03, 2020 23:41
[2020-10-04] VITALS: BP 122/78
[2020-10-04 04:00] VITALS: BP 101/67
--- NOTE | 2020-10-04 07:15 | NUR ---
NURSE HAND-OFF: Important Events on Shift:none Patient Status: stable Diet: regular Pending Orders: Pending Results/Labs: Pending MD notification: Latest Vital Signs: Temperature 96.9 , Pulse 53 , B/P 101 /67 , Respiratory Rate 18 , O2 SAT 98 , Nasal Cannula, O2 Flow Rate 1.5 . Vital Sign Comment: vss Latest Martinez Fall Score: 20 Fall Risk: Low Risk Safety Measures: Call light Within Reach, Bed Alarm Zone 1, Side Rails Side Rails x2, Bed position Low and Locked. Fall Precautions: Patient Fall Education Report given to HERNANDO Cruz..
--- NOTE | 2020-10-04 07:35 | NUR ---
NURSE NOTES: Received report from Celine RN. Patient observed to be awake, alert, and oriented x4. Seen lying in bed with HOB elevated currently on NC 1.5 sating well. No c/o any discomfort at the time. Patient on contact and droplet isolation for (+) covid. IV site located on LFA 20 Saline lock. Asymptomatic, inplace and patent. Running well. Bed placed on lowest and locked, call light placed within reach and will continue to monitor for any changes in condition.
[2020-10-04 08:00] VITALS: BP 123/86
--- NOTE | 2020-10-04 09:36 | Pulmonology Progress Note ---
Subjective ROS Limited/Unobtainable: No Constitutional: Denies: fever HEENT: Repors: no symptoms Respiratory: Reports: dry cough; Denies: shortness of breath, wheezing Cardiovascular: Denies: chest pain, palpitations Gastrointestinal/Abdominal: Denies: nausea, vomiting, diarrhea Allergies: Coded Allergies: No Known Allergies (Unverified , 10/01/20) Subjective pt complains of intermittent cough Objective Last 24 Hour Vital Signs Date Time Temp Pulse Resp B/P (MAP) Pulse Ox O2 Delivery O2 Flow Rate FiO2 10/04/20 04:00 96.9 53 18 101/67 (78) 98 10/04/20 00:00 96.8 50 18 122/78 (93) 98 10/03/20 21:00 Nasal Cannula 1.5 10/03/20 20:00 96.2 64 18 124/81 (95) 97 10/03/20 16:00 97.1 72 20 121/71 (88) 98 10/03/20 12:00 98.1 73 20 131/71 (91) 99 Intake and Output 10/03/20 10/04/20 19:00 07:00 Intake Total 1200 ml Output Total 750 ml Balance 1200 ml -750 ml Intake Oral 1200 ml Output Urine Total 750 ml # Voids 3 Objective 10/04/2020 saturating well on RA; reports feeling better and requests to go home 10/03/2020 saturating 99% on 2 lpm NC; reports feeling better General Appearance: WD/WN, no acute distress HEENT: normocephalic, atraumatic Respiratory: chest wall non-tender, lungs clear Cardiovascular: normal rate, regular rhythm, no gallop/murmur Abdomen: normal bowel sounds, soft, non tender Extremities: no edema Microbiology Date/Time Source Procedure Growth Status 10/01/20 19:23 Blood Blood Culture - Preliminary NO GROWTH AFTER 48 HOURS Resulted 10/01/20 19:17 Blood Blood Culture - Preliminary NO GROWTH AFTER 48 HOURS Resulted 10/01/20 19:10 Nasopharynx SARS-CoV-2 RdRp Gene Assay - Final Complete Current Medications Medications (Trade) Dose Ordered Sig/Carlos Route PRN Reason Start Time Stop Time Status Last Admin Dose Admin Acetaminophen (Tylenol) 650 mg Q6H PRN ORAL Temp >100.5 10/02/20 00:30 11/01/20 00:29 Albuterol/ Ipratropium (Combivent Respimat) 1 puff Q4H PRN INH Shortness of Breath 10/03/20 14:00 11/02/20 13:59 Azithromycin (Zithromax) 500 mg DAILY ORAL 10/03/20 09:00 10/10/20 08:59 10/03/20 09:37 Ceftriaxone Sodium 1 gm/ Dextrose 50 ml @ 100 mls/hr Q24H IVPB 10/02/20 18:00 10/09/20 17:59 10/03/20 18:11 Dexamethasone Sodium Phosphate (Decadron 4mg/ml vial) 6 mg DAILY IVP 10/02/20 09:00 10/11/20 08:59 10/03/20 09:38 Heparin Sodium (Porcine) (Heparin 5000 units/ml) 5,000 units EVERY 12 HOURS SUBQ 10/02/20 09:00 11/16/20 08:59 10/03/20 20:44 Assessment/Plan Assessment/Plan Assessment: 1. COVID-19 pneumonia. - CXR shows patchy b/l infiltrates concerning for multifocal pneumonia - on broad spectrum Abx and decadron - hold off on remdesivir 2. Initially hypoxic, now has normal oxygenation on RA 3. Elevated inflammatory markers. 4. DVT ppx - lovenox 5. Elevated BUN - BUN 20 - monitor We will follow carefully The care of this patient was discussed with my supervising physician Time spent for this encounter was approximately 31 minutes Fabián Vargas Oct 04, 2020 09:35
[2020-10-04] MEDS: Azithromycin 250mg tab ORAL SCH (09:42)
[2020-10-04] MEDS: Heparin 5000 units/ml inj SUBQ SCH (09:43)
[2020-10-04 12:00] VITALS: BP 133/66
[2020-10-04] MEDS ORDERED: DECADRON6 MG PO ×3 (12:36→13:26)
--- NOTE | 2020-10-04 12:38 | Discharge Instructions ---
Discharge Instructions Discharge Instructions Follow up with: PCP Special Instructions Please self isolate from others in your house and do not leave your home. Please continue these practices for an additional 7-10days.ALWAYS WEAR A MASK. For Congestive Heart Failure Reminder Report to your physician any weight gain of 5 pounds or more in one week. Saritha Carlson M.D. Oct 04, 2020 12:38
--- NOTE | 2020-10-04 12:43 | Discharge Summary ---
Discharge Summary Hospital Course Date of Admission Oct 01, 2020 at 19:34 Date of Discharge Admitting Diagnosis covid+ HPI Javier Avila is a 50 year old male who was admitted on Oct 01, 2020 at 19:34 for Covid Positive Hospital Course PHYSICAL EXAM GENERAL: lying comfortably in bed HEENT: EOMI Neck: Supple Resp: Clear to auscultation Cardiac: RRR, no m/r/g Extremities: normal ROM Skin: Warm and Dry Patient presented with myalgias and pain in his chest. He was noted to have Covid19 with some hypoxia on admission. CXR was consistent with b/l patchy infiltrates and there was additional concern for possible CAP. He was treated with Azithromycin and ceftriaxone for 3 days and Decadron IV. He will be transitioned to PO decadron to complete 10d. He is off all oxygen at this time. He was followed by Pulmonology and ID in patient. He was given strict isolation precautions and information on self quarantine. Discharge Discharge Vital Signs Last Vital Signs Date Time Temp Pulse Resp B/P (MAP) Pulse Ox O2 Delivery O2 Flow Rate FiO2 10/04/20 12:00 97.2 75 19 133/66 (88) 96 10/04/20 09:00 Nasal Cannula 1.5 Discharge Disposition Patient was discharged to home. Discharge Instructions Discharge Instructions Follow up with: PCP Saritha Carlson M.D. Oct 04, 2020 12:43
--- NOTE | 2020-10-04 14:02 | NUR ---
CASE MANAGEMENT:REVIEW SI;COVID PNEUMONIA 96.8 50 19 133/66 96% 1.5 L NC IS;ZITHROMAX PO QD ROCEPHIN IV Q24 DECADRON IV QD HEPARIN SQ Q12 MED SURG STATUS DCP;FORM HOME
--- NOTE | 2020-10-04 15:35 | NUR ---
NURSE NOTES: Patient with order to be discharged home. Patient awake, alert, and oriented x4. Seen lying in bed, currently on room air no s/sx of SOB/Distress, no c/o any pain or discomfort at this time. Discharge paperworks prepared. Discharge education provided. Medication brought from [facility]. All belongings checked and acoounted for. IV and ID band removed. Patient discharged from unit in stable condition.
--- NOTE | 2020-10-05 21:15 | Consultation ---
DATE OF CONSULTATION: 10/03/2020 INFECTIOUS DISEASE CONSULTATION CONSULTING PHYSICIAN: Bita Gutierrez MD. REASON FOR CONSULTATION: COVID-19 infection pneumonia. HISTORY OF PRESENT ILLNESS: The patient's chief complaint into the hospital is hypoxia, COVID-19 infection pneumonia. HISTORY OF PRESENT ILLNESS: This is a 50-year-old male who comes into [facility] with body aches and chest pain with deep inhalation. The patient was diagnosed with COVID infection by SARS rapid testing. The patient was admitted for COVID infection. Infectious Disease consultation requested for further management. The patient was given Rocephin, dexamethasone, azithromycin. REVIEW OF SYSTEMS: As discussed main issue is shortness of breath. He also had fevers. No nausea, vomiting, diarrhea. No dysuria or frequency. Pulmonary, some shortness of breath. PAST MEDICAL HISTORY: Otherwise negative. MEDICATIONS: Noted and reconciliated. He was given azithromycin, Rocephin, and dexamethasone. ALLERGIES: No known allergies. SOCIAL HISTORY: Negative. FAMILY HISTORY: Noncontributory. PHYSICAL EXAMINATION: VITAL SIGNS: On admission, temperature 103.1. I saw the patient earlier. Vital signs were as follows. Temperature 98.1, pulse 73, respiratory rate of 20, blood pressure 131/71, saturation 99% on 2 liters. GENERAL: Alert and responsive, no acute distress. HEART: Regular. No gallop or murmur. ABDOMEN: Soft. Positive bowel sounds. Nontender. LUNGS: Few bilateral rhonchi and rales. NEUROLOGIC: Intact. LABORATORY DATA: White count 6.8, hemoglobin 14.6. Creatinine 0.7. Chest x-ray consistent with multifocal pneumonia. Blood cultures pending to date. SARS testing positive. UA negative. ASSESSMENT AND PLAN: 1. COVID infection with pneumonia, rule out community-acquired pneumonia. Continue dexamethasone, Rocephin, azithromycin. Followup on chest x-ray. Monitor hypoxia. Continue COVID-19 isolation. 2. 3. Continue treatment per primary consultants. Bita Gutierrez M.D. DR: Christopher JOB#: [id number] CC:
== END 2020-10-04 15:35 | disposition home or self-care (01) | DRG 177 ==
LOC: EMR 18:00 → 4E 19:34 → EDBEDREQ 22:35
DX: U07.1 COVID-19 (principal); J12.89 Other viral pneumonia; J96.01 Acute respiratory failure with hypoxia
CPT/HCPCS: 36415; 71045; 80048; 80053; 81003; 82728; 83605; 83615; 83690; 83735; 83880; 84100; 84484; 85007; 85025; 85379; 85610; 85730; 86140; 87040; 93005; 96361; 96365; 96367; 96375; 99285; J7030; U0002